=== PATIENT | female | born 1980 | race Two or more races ===

== ENCOUNTER 2025-01-20 08:38 | Outpatient (RCR) | payer MEDICAID, SELFPAY ==
--- NOTE | 2025-01-14 14:07 | CTCFLWUP_ITS ---
[facility] [address] [place], [place] [address] FOLLOW-UP NOTE Date: 01/14/2025 MR#: [id number] Name: LUISA TYSON : 1980 Dx: C79.31 Secondary malignant neoplasm of brain Identification. Patient with inflammatory breast CA with brain mets initially seen 11/02/2023. 2 sites in the posterior parietal area noted and received SBRT in 5 fractions completed 12/05/2023. 3000 cGy Patient responded well and MRI 12/28/2023 reportedly showed no evidence of mets disease. I think he is correct Patient was having headaches and had another MRI performed 12/20/2024 And there is now extensive metastatic disease to the brain left frontal bilaterally parietal lobes and cerebellum. I believe that we need to now treat the whole brain in 10 fractions 3000 . Patient taking pain pills but not steroids. Side effects discussed. Patient is not . Will try to provide social work help to help with the mileage since she lives an hour away in [place]. Cc: Shine Smith MD Electronically signed by: Kvng Jacques M.D. 01/14/2025 2:05 PM
--- NOTE | 2025-01-14 14:09 | CTCTXPLN_ITS ---
[facility] [address] [place], [place] [address] Physician Clinical Treatment Planning Note Date of Service: 01/14/2025 Name: LUISA DOSSEMELIADOMENICAShobhaSTEPHANE : 1980 The patient has agreed to proceed with Radiation therapy. Tests and supporting medical records were interpreted to assist in defining the tumor location and extent of disease. Further imaging will be necessary to contour and delineate the volume to which the XRT will be provided. A. Treatment Intent: Palliative B. Modality: 6 MV C. Requested Technique: 3D D. Treatment Site: Brain E. Critical structures to be contoured on plan: F. In order to accomplish this plan, I am ordering/Prescribing the followin. Simulations (s) will be performed to accomplish a reproducible treatment position, to determine optimal treatment portals/beam arrangements, to design beam modifying devices and verify treatment portals on patient prior to the commencement of Radiation Therapy. Brain 2. Devices; for immobilization and beam shaping: Aquaplast 3. CT Guidance for placement of XRT xie Scan area: 4. Portal images Frequency: 5. Invivo transit dose measurement once per week on all VMAT patients. 6. Special Physics Consult Requested for: 7. Other requests: Special procedures someone getting chemo and radiation. G. Dose Objectives: Curative Electronically signed by: Kvng Jacqeus M.D. 01/14/2025 2:07 PM
--- NOTE | 2025-01-14 14:10 | CTCTXPLNST_ITS ---
Radiation Oncology Treatment Planning Sheet Name: LUISA TYSON MR#: [id number] : 1980 Dx: C79.31 Secondary malignant neoplasm of brain Date of Service: 01/14/2025 Account #: ?? Pt Treatment Intent: curative palliative other: Stage: Procedure CPT # Ordered Spec. Procedure 95838 1 Sheikh Complex (set-up) 25943 brain 1 Sheikh Simple 79754 1 IMRT Plan 02344 MLC Devices VMAT 52334 Sheikh 3 D 38274 1 TRTMT dev Complex 39945 aquaplast 1 TRTMT dev simple 25124 Basic [place] 50826 2 Special Dosimetry 91373 Spec Physics 41780 Port Films 44048 2 SRS Cranial/1FX 12496 SBR 5 FX or Less /ex: 5 = 5 fx 33701 IMRT Simple 76845 IMRT Complex 84767 IGRT 18738 Rad del com 6-10 77090 3000 10 Rad del com 11- 48263 Cont Med Physics 06398 2 Treatment Planning 86656 1 Rad del com 20 mev 14564 Rad del inter 6 82839 Rad del inter 11 39484 Rad del simple 6-10 48769 Rad del simple 11-19 25067 Special Port Plan 27285 TRTMT dev inter 33991 Isodose Complex 07819 Isodose simple 09675 Resp Motion Mgmt Simulation 55226 Placement of Fiducial Markers 55320 Electronically Signed By: Kvng Jacques MD, DABR 01/14/2025 2:08 PM
== END 2025-01-20 23:59 | disposition home or self-care (01) ==
LOC: SCTC 08:38
PROVIDERS: Referring Provider Radiology Therapeutic Radiology; Visit Provider Radiology Therapeutic Radiology
DX: C79.31 Secondary malignant neoplasm of brain (principal); C50.412 Malignant neoplasm of upper-outer quadrant of left female breast; Z17.0 Estrogen receptor positive status [ER+]; Z17.21 Progesterone receptor positive status; Z17.31 Human epidermal growth factor receptor 2 positive status
CPT/HCPCS: 77014; 77290; 77334; 77470; 99213; G0463

== ENCOUNTER 2025-02-20 09:43 | Outpatient (RCR) | payer MEDICAID, SELFPAY | END 2025-02-20 23:59 | disposition home or self-care (01) | LOC: SCTC 09:43 | PROVIDERS: Referring Provider Radiology Therapeutic Radiology; Visit Provider Radiology Therapeutic Radiology | DX: Z51.0 Encounter for antineoplastic radiation therapy (principal); C79.31 Secondary malignant neoplasm of brain; C50.412 Malignant neoplasm of upper-outer quadrant of left female breast; Z17.0 Estrogen receptor positive status [ER+]; Z17.21 Progesterone receptor positive status; Z17.31 Human epidermal growth factor receptor 2 positive status; H53.8 Other visual disturbances | CPT/HCPCS: 77280; 77295; 77300; 77334; 77336; 77412; 77417; 99212; G0463 ==